=== PATIENT | female | born 1965 | race Caucasian/White ===

== ENCOUNTER 2016-12-08 08:18 | Emergency (ER) | payer OTHER ==
[2016-12-08] MEDS ORDERED: KETOROLAC 60 MG/2 ML VIAL IM ONE (09:14)
[2016-12-08] MEDS ORDERED: ORPHENADRINE 60 MG/2 ML AMP ONE (09:14)
[2016-12-08] MEDS ORDERED: MORPHINE 4 MG/ML SYR ONE (12:05)
== END 2016-12-08 14:36 | disposition home or self-care (01) ==
LOC: ER 08:18
DX: M25.551 Pain in right hip (principal)
CPT/HCPCS: 72100; 82947; 93923; 96372; 96374